=== PATIENT | male | born 1975 | race African-American/Black ===

== ENCOUNTER 2021-02-17 13:13 | Outpatient (REF) | payer OTHER, SELFPAY | END 2021-02-17 13:14 | disposition home or self-care (01) | LOC: HO.HMGCLDS 13:13 | PROVIDERS: Visit Provider Internal Medicine | DX: Z20.822 Contact with and (suspected) exposure to COVID-19 (principal) | CPT/HCPCS: C9803; U0003; U0005 ==

== ENCOUNTER → 2022-02-25 08:32 | Outpatient (BNVA) | payer SELFPAY | PROVIDERS: Visit Provider Physician Assistant Medical | DX: Z02.79 Encounter for issue of other medical certificate (principal) ==

== ENCOUNTER → 2024-02-21 14:54 | Outpatient (BNVA) | payer SELFPAY | PROVIDERS: Visit Provider Physician Assistant Medical | DX: Z02.79 Encounter for issue of other medical certificate (principal) ==